=== PATIENT | male | born 2000 ===

== ENCOUNTER 2018-05-22 14:31 | Emergency (ER) | payer BC ==
[2018-05-22 14:44] VITALS: BP 105/57
--- NOTE | 2018-05-22 14:57 | ED ---
Throat Pain/Nasal Congestion - HPI Summary HPI Summary: This patient is a 17 year old M presenting to [facility] with a chief complaint of R ear pain since 4 days ago. The patient rates the pain 4/10 in severity. Patient reports 4 days of congestion in face and R eye. Patient denies fevers and having these symptoms before. Went to [facility] and was prescribed ibuprofen and Sudogest. He has no PMHx. Patient has a PSHx of circumcision. He occasionally uses alcohol and marijuana. He has no FHx of disease. - History of Current Complaint Chief Complaint: UCEar Time Seen by Provider: 05/22/18 14:39 Hx Obtained From: Patient Onset/Duration: Lasting Days - since 4 days ago, Still Present Severity: Moderate - 4/10 in severity Associated Signs And Symptoms: Positive: Nasal Discharge Cough: None - Allergies/Home Medications Allergies/Adverse Reactions: Allergies Allergy/AdvReac Type Severity Reaction Status Date / Time No Known Allergies Allergy Verified 05/22/18 14:44 PMH/Surg Hx/FS Hx/Imm Hx Endocrine/Hematology History: Denies: Hx Diabetes, Hx Thyroid Disease Cardiovascular History: Denies: Hx Hypertension Respiratory History: Denies: Hx Asthma, Hx Chronic Obstructive Pulmonary Disease (COPD) GI History: Denies: Hx Ulcer Infectious Disease History: No Infectious Disease History: Denies: Hx Hepatitis, Hx Human Immunodeficiency Virus (HIV), Traveled Outside the [place] in Last 30 Days - Family History Known Family History: Negative: Cardiac Disease, Hypertension, Diabetes - Social History Occupation: Student Lives: Dormitory/Roommates Alcohol Use: Occasionally Substance Use Type: Reports: None Smoking Status (MU): Never Smoked Tobacco Review of Systems Negative: Fever Positive: Other - Congestion R eye Positive: Ear Ache - since 4 days ago, Other - Congestion in face All Other Systems Reviewed And Are Negative: Yes Physical Exam - Summary Physical Exam Summary: VITAL SIGNS: Reviewed. GENERAL: Patient is a well-developed and nourished MALE who is lying comfortable in the stretcher. Patient is not in any acute respiratory distress. HEAD AND FACE: Normocephalic EYES: PERRLA, EOMI x 2. EARS: R tympanic membrane is erythematic and bulging. MOUTH: Oropharynx within normal limits. NECK: Supple, trachea is midline, no adenopathy, no JVD, no carotid bruit. CHEST: Symmetric, no tenderness at palpation LUNGS: Clear to auscultation bilaterally. No wheezing or crackles. CVS: Regular rate and rhythm, S1 and S2 present, no murmurs or gallops appreciated. ABDOMEN: Soft, non-tender. Bowel sounds are normal. No abdominal abnormal pulsations. EXTREMITIES: Full ROM in all major joints, no edema, no cyanosis or clubbing. NEURO: Alert and oriented x 3. No acute neurological deficits. Speech is normal and follows commands. SKIN: Dry and warm Triage Information Reviewed: Yes Vital Signs On Initial Exam: Initial Vitals Temp Pulse Resp BP Pulse Ox 98.3 F 67 18 105/57 97 05/22/18 14:40 05/22/18 14:40 05/22/18 14:40 05/22/18 14:40 05/22/18 14:40 Vital Signs Reviewed: Yes Diagnostics - Vital Signs Vital Signs Temp Pulse Resp BP Pulse Ox 05/22/18 14:40 98.3 F 67 18 105/57 97 - Laboratory Lab Statement: Any lab studies that have been ordered have been reviewed, and results considered in the medical decision making process. Discharge - Discharge Plan Prescriptions: Amoxicillin PO (*) [Amoxicillin 875 MG (*)] 875 mg PO BID #20 tab Patient Education Materials: Ear Infection (ED) Referrals: [facility] [Outside] No Primary Care Phys,NOPCP [Primary Care Provider] - Additional Instructions: Take medications as instructed and adhere to plan Take Acetaminophen or ibuprofen for pain or fever Increase your fluid intake Return to the or go to the emergency department if symptoms worsen Follow-up with primary care physician in next 2-3 days - Attestation Statements Document Initiated by Scribe: Yes Documenting Scribe: Doe Bran Provider For Whom Scribe is Documenting (Include Credential): Darien Becker MD Scribe Attestation: Doe Lucio, scribed for Darien Becker MD on 05/22/18 at [id number].
--- NOTE | 2018-05-22 15:05 | UC ---
Ear Complaint HPI - HPI Summary HPI Summary: This patient is a 17 year old M presenting to [facility] with a chief complaint of R ear pain since 4 days ago. The patient rates the pain 4/10 in severity. Patient reports 4 days of congestion in face and R eye. Patient denies fevers and having these symptoms before. Went to [facility] and was prescribed ibuprofen and Sudogest. He has no PMHx. Patient has a PSHx of circumcision. He occasionally uses alcohol and marijuana. He has no FHx of disease. - History of Current Complaint Chief Complaint: UCEar Stated Complaint: R EAR PAIN Time Seen by Provider: 05/22/18 14:39 Hx Obtained From: Patient Onset/Duration: Lasting Days - 4 days, Still Present Severity Initially: Moderate Severity Currently: Moderate Pain Intensity: 4 Pain Scale Used: 0-10 Numeric Aggravating Factors: Nothing Alleviating Factors: Nothing - Allergies/Home Medications Allergies/Adverse Reactions: Allergies Allergy/AdvReac Type Severity Reaction Status Date / Time No Known Allergies Allergy Verified 05/22/18 14:44 PMH/Surg Hx/FS Hx/Imm Hx Endocrine History: Diabetes - No diabetes Cardiovascular History: Cardiac Disease - No CAD - Surgical History Surgical History: None - Family History Known Family History: Negative: Cardiac Disease, Hypertension, Diabetes - Social History Occupation: Student Lives: Dormitory/Roommates Alcohol Use: Occasionally Substance Use Type: None Smoking Status (MU): Never Smoked Tobacco Review of Systems Constitutional: Fever - Denies Fever, Other - Denies having these symptoms before Eyes: Other - 4 days of congestion in face and eye ENT: Ear Ache - 4 days All Other Systems Reviewed And Are Negative: Yes Physical Exam - Summary Physical Exam Summary: VITAL SIGNS: Reviewed. GENERAL: Patient is a well-developed and nourished MALE who is lying comfortable in the stretcher. Patient is not in any acute respiratory distress. HEAD AND FACE: Normocephalic EYES: PERRLA, EOMI x 2. EARS: Hearing grossly intact. R tympanic membrane is erythematic and bulging. MOUTH: Oropharynx within normal limits. NECK: Supple, trachea is midline, no adenopathy, no JVD, no carotid bruit. CHEST: Symmetric, no tenderness at palpation LUNGS: Clear to auscultation bilaterally. No wheezing or crackles. CVS: Regular rate and rhythm, S1 and S2 present, no murmurs or gallops appreciated. ABDOMEN: Soft, non-tender. Bowel sounds are normal. No abdominal abnormal pulsations. EXTREMITIES: Full ROM in all major joints, no edema, no cyanosis or clubbing. NEURO: Alert and oriented x 3. No acute neurological deficits. Speech is normal and follows commands. SKIN: Dry and warm Triage Information Reviewed: Yes Vital Signs: Initial Vital Signs Temp 98.3 F 05/22/18 14:40 Pulse 67 05/22/18 14:40 Resp 18 05/22/18 14:40 BP 105/57 05/22/18 14:40 Pulse Ox 97 05/22/18 14:40 Vital Signs Reviewed: Yes Ear Complaint Course/Dx - Course Course Of Treatment: Patient is a 17-year-old male with chief complaint of ear pain. Patient was diagnosed with otitis media. Patient given a prescription for Augmentin. He will follow-up with primary care physician. Patient is hemodynamically stable. - Differential Dx/Diagnosis Provider Diagnoses: Otitis media Discharge - Sign-Out/Discharge Documenting (check all that apply): Patient Departure - D/C All imaging exams completed and their final reports reviewed: No Studies - Discharge Plan Condition: Stable Disposition: HOME Prescriptions: Amoxicillin PO (*) [Amoxicillin 875 MG (*)] 875 mg PO BID #20 tab Patient Education Materials: Ear Infection (ED) Referrals: [facility] [Outside] No Primary Care Phys,NOPCP [Primary Care Provider] - Additional Instructions: Take medications as instructed and adhere to plan Take Acetaminophen or ibuprofen for pain or fever Increase your fluid intake Return to the or go to the emergency department if symptoms worsen Follow-up with primary care physician in next 2-3 days - Billing Disposition and Condition Condition: STABLE Disposition: Home - Attestation Statements Document Initiated by Scribe: Yes Documenting Scribe: Doe Bran Provider For Whom Sierraibe is Documenting (Include Credential): Darien Becker MD Scribe Attestation: Doe Lucio, scribed for Darien Becker MD on 05/22/18 at 1610. Scribe Documentation Reviewed: Yes Provider Attestation: The documentation as recorded by the Doe garcia accurately reflects the service I personally performed and the decisions made by , Darien Becker MD
== END 2018-05-22 14:55 | disposition home or self-care (01) ==
LOC: UCEAST 14:31
DX: H66.91 Otitis media, unspecified, right ear (principal)
CPT/HCPCS: 99201; G0463